=== PATIENT | female | born 1950 | race Caucasian/White ===

== ENCOUNTER → 2020-11-12 | Outpatient (CLI) | payer MEDICARE | LOC: COL.RAD 10:17 | DX: M79.672 Pain in left foot (principal) | CPT/HCPCS: J3301; Q9967 ==

== ENCOUNTER → 2023-03-16 | Outpatient (CLI) | payer MEDICARE | LOC: COL.RAD 07:40 | DX: M16.11 Unilateral primary osteoarthritis, right hip (principal) | CPT/HCPCS: J3301; Q9967 ==

== ENCOUNTER → 2023-11-20 | Outpatient (CLI) | payer MEDICARE ==
[~2023-11-20] MED LIST: Iohexol 300 - 10 ML VIAL IV ONE; Triamcinolone 40 MG/ML 1 ML VIAL IJ ONE
== END ==
LOC: COL.RAD 09:38
DX: M16.11 Unilateral primary osteoarthritis, right hip (principal)
CPT/HCPCS: J0665; J3301; Q9967